=== PATIENT | male | born 1955 | race Caucasian/White ===

== ENCOUNTER 2018-07-01 18:26 | Inpatient (IN) | payer MEDICAID, OTHER ==
--- NOTE | 2018-07-01 19:07 | ED ---
HPI Cardiac - HPI Summary HPI Summary: Patient is a 62 y/o M presenting to ED with complaints of chest pain characterized as a pressure, left arm pain, and left jaw pain. He notes that he was in [place] visiting his who is hospitalized at [facility] with pneumonia and is on ecmo. He was driving to [place], stopped at gas station and got out. He states that as he was walking, Sx progressively began to onset and worsened as he continued to drive. He went to [facility], stopped on side of the street, asked a passerby to call EMS. He reports that Sx have improved but are still present slightly. No sweats, no nausea, no BLE is reported. He was SOB during episode as well. Patient claims he is around 70% blocked on left carotid artery and that he is scheduled for a bypass. PMHx of stroke, HTN, diabetes, HLD, no MD. Patient is on blood thinners. On triage, pain is rated 2/ 10. Home medications and allergies are reviewed. - History of Current Complaint Chief Complaint: EDChestPainROMI Stated Complaint: CHEST PAIN Time Seen by Provider: 07/01/18 19:01 Hx Obtained From: Patient Onset/Duration: Started Hours Ago, Still Present Timing: Constant, Lasting Hours Initial Severity: Severe Current Severity: Mild - 2/10 Pain Intensity: 2 Pain Scale Used: 0-10 Numeric - 2/10 Chest Pain Radiates: Yes Chest Pain Radiates To:: Arm - left, Jaw - left Character: Pressure/Squeezing Aggravating Factor(s): Nothing Alleviating Factor(s): Nothing Associated Signs and Symptoms: Positive: Chest Pain, Shortness of Breath, Other : - left jaw pain, left arm pain. Negative: Swelling, Diaphoresis, Nausea, Calf Pain/Swelling - Allergy/Home Medications Allergies/Adverse Reactions: Allergies Allergy/AdvReac Type Severity Reaction Status Date / Time Penicillins Allergy See Comment Verified 07/01/18 18:45 Home Medications: Home Medications Acarbose 1 tab PO TID WITH MEALS 07/01/18 [History Confirmed 07/01/18] Amitriptyline TAB* [Elavil TAB*] 50 mg PO BEDTIME 07/01/18 [History Confirmed ] Aspirin 81 mg PO DAILY 07/01/18 [History Confirmed 07/01/18] Citalopram TAB* [CeleXA TAB*] 1.5 tab PO DAILY 07/01/18 [History Confirmed 07/01] Clopidogrel TAB* [Plavix TAB*] 75 mg PO DAILY 07/01/18 [History Confirmed ] Cyanocobalamin (Vitamin B-12) [B-12] 2,500 mcg PO DAILY 07/01/18 [History Confirmed 07/01/18] Hydrochlorothiazide TAB* [Hydrodiuril TAB*] 1 tab PO DAILY 07/01/18 [History Confirmed 07/01/18] Lisinopril 1 tab PO DAILY 07/01/18 [History Confirmed 07/01/18] Metoprolol Succinate XL TAB* [Toprol XL TAB*] 50 mg PO BID 07/01/18 [History Confirmed 07/01/18] Multivit-Min/FA/Lycopen/Lutein [Centrum Silver Men Tablet] 1 each PO DAILY 07/01 [History Confirmed 07/01/18] [place] Oil/Howe-3 Fatty Acids [[place] Oil 1,000 mg Softgel] 1 each PO DAILY 02/08 [History Confirmed 07/01/18] Simvastatin 1 tab PO BEDTIME 07/01/18 [History Confirmed 07/01/18] glyBURIDE TAB* [Diabeta TAB*] 2 tab PO BID WITH MEALS 07/01/18 [History Confirmed 07/01/18] metFORMIN* [Glucophage 1000 MG TAB *] 1,000 mg PO QPM 07/01/18 [History Confirmed 07/01/18] metFORMIN* [Glucophage 1000 MG TAB *] 1,500 mg PO QAM 07/01/18 [History Confirmed 07/01/18] traZODone TAB* [Desyrel TAB*] 50 mg PO BEDTIME 07/01/18 [History Confirmed 07/01] PMH/Surg Hx/FS Hx/Imm Hx Endocrine/Hematology History: Reports: Hx Diabetes Cardiovascular History: Reports: Hx Hypercholesterolemia, Hx Hypertension Denies: Hx Myocardial Infarction Sensory History: Denies: Hx Legally Blind, Hx Deafness Opthamlomology History: Denies: Hx Legally Blind EENT History: Denies: Hx Deafness Neurological History: Reports: Hx CVA Infectious Disease History: No Infectious Disease History: Denies: Traveled Outside the [place] in Last 30 Days - Family History Known Family History: Negative: Blood Disorder - Social History Lives: With Family Alcohol Use: None Substance Use Type: Reports: None Review of Systems Negative: Skin Diaphoresis Positive: Chest Pain - with radiation to left jaw and left arm Positive: Shortness Of Breath Negative: Nausea Negative: Edema - no BLE All Other Systems Reviewed And Are Negative: Yes Physical Exam - Summary Physical Exam Summary: VITAL SIGNS: Reviewed. GENERAL: Patient is a well-developed and obese male who is lying comfortable in the stretcher. Patient is not in any acute respiratory distress. HEAD AND FACE: No signs of trauma. No ecchymosis, hematomas or skull depressions. No sinus tenderness. EYES: PERRLA, EOMI x 2, No injected conjunctiva, no nystagmus. EARS: Hearing grossly intact. Ear canals and tympanic membranes are within normal limits. MOUTH: Oropharynx within normal limits. NECK: Supple, trachea is midline, no adenopathy, no JVD, no carotid bruit, no c- spine tenderness, neck with full ROM. CHEST: Symmetric, no tenderness at palpation LUNGS: Clear to auscultation bilaterally. No wheezing or crackles. CVS: Regular rate and rhythm, S1 and S2 present, no murmurs or gallops appreciated. ABDOMEN: Soft, non-tender. No signs of distention. No rebound no guarding, and no masses palpated. Bowel sounds are normal. EXTREMITIES: FROM in all major joints, no edema, no cyanosis or clubbing. NEURO: Alert and oriented x 3. No acute neurological deficits. Speech is normal and follows commands. SKIN: Dry and warm Triage Information Reviewed: Yes Vital Signs On Initial Exam: Initial Vitals Temp Pulse Resp BP Pulse Ox 98.4 F 105 14 165/86 95 07/01/18 18:38 07/01/18 18:38 07/01/18 18:38 07/01/18 18:38 07/01/18 18:38 Vital Signs Reviewed: Yes Diagnostics - Vital Signs Vital Signs Temp Pulse Resp BP Pulse Ox 07/01/18 18:38 98.4 F 105 14 165/86 95 - Laboratory Result Diagrams: 07/02/18 05:59 07/02/18 05:52 Lab Statement: Any lab studies that have been ordered have been reviewed, and results considered in the medical decision making process. - Radiology cxr Radiology Interpretation Completed By: ED Physician Summary of Radiographic Findings: Chest x-ray: sided chest interstitial congestion, no infiltrate, pending official report. - EKG 1901 Cardiac Rate: NL - rate of 105 BPM EKG Rhythm: Sinus Tachycardia Summary of EKG Findings: EKG showed sinus rhythm with rate of 105 BPM, no ST elevations. Re-Evaluation - Re-Evaluation First Eval Re-Evaluation Time: 21:13 Comment: Admission was discussed with patient, he is agreeable. Disposition - Course Assessment/Plan: Patient is a 62 y/o M presenting to ED with complaints of chest pain characterized as a pressure, left arm pain, and left jaw pain. He notes that he was in [place] visiting his who is hospitalized at [facility] with pneumonia and is on ecmo. He was driving to [place], stopped at gas station and got out. He states that as he was walking, Sx progressively began to onset and worsened as he continued to drive. He went to [facility] , stopped on side of the street, asked a passerby to call EMS. He reports that Sx have improved but are still present slightly. No sweats, no nausea, no BLE is reported. He was SOB during episode as well. Patient claims he is around 70% blocked on left carotid artery and that he is scheduled for a bypass. PMHx of stroke, HTN, diabetes, HLD, no MD. Patient is on blood thinners. Blood work without any significant abnormality except for glucose 184, AST was 55, AST is 105, troponin 0.05. EKG shows no ST elevations. Chest x-ray: sided chest interstitial congestion, no infiltrate. The patient was given an aspirin and because of his multiple risk factors I discussed the case with Dr. Hinojosa from the hospitalist services and she agrees to admit the patient to his services for further workup and management. - Differential Dx - Cardiopulmonary Differential Diagnoses - Cardiopulmonary: CAD, CHF, Chest Wall Pain - Diagnoses Provider Diagnoses: Chest pain, Elevated troponin - Physician Notifications Discussed Care Of Patient With: Judi Padilla Time Discussed With Above Provider: 21:11 Instructed by Provider To: Other - Patient's case was discussed with Dr. Padilla at 2110, Dr. Padilla accepts for admission. Discharge - Sign-Out/Discharge Documenting (check all that apply): Patient Departure - admit Patient Received Moderate/Deep Sedation with Procedure: No - NO PROCEDURES DONE - Discharge Plan Condition: Stable Disposition: ADMITTED TO [facility] - Billing Disposition and Condition Condition: STABLE Disposition: Admitted to [facility] - Attestation Statements Document Initiated by Kennedy: Yes Documenting Scribe: DORIAN MYLES Provider For Whom Jennyibe is Documenting (Include Credential): PRERNA MCKEON MD Scribe Attestation: IDORIAN , scribed for PRERNA MCKEON MD on 07/02/18 at 1247. Scribe Documentation Reviewed: Yes Provider Attestation: The documentation as recorded by the scribeDORIAN accurately reflects the service I personally performed and the decisions made by me, PRERNA MCKEON MD Status of Scribe Document: Viewed
[2018-07-01 19:27] LABS: ABS Basophils 0 10^3/ul (0-0.2); ABS Eosinophils 0.1 10^3/ul (0-0.6); ABS Lymphocytes 1.4 10^3/ul (1.0-4.8); ABS Monocytes 0.4 10^3/ul (0-0.8); ABS Neutrophils 4.4 10^3/ul (1.5-7.7); ABS Nucleated RBC 0 10^3/ul; Eosinophil % 1.5 %; Hematocrit 41 % (42-52); Hemoglobin 14.1 g/dl (14.0-18.0); Lymphocyte % 22.1 %; Mean Corpuscular HGB Conc 34 g/dl (31-36); Mean Corpuscular Hemoglobin 31 pg (27-31); Mean Corpuscular Volume 91 fL (80-94); Mean Platelet Volume 8.1 fL (7.4-10.4); Nucleated Red Blood Cells % 0; Platelet Count 134 10^3/ul (150-450); Red Blood Count 4.54 10^6/ul (4.00-5.40); Red Cell Distribution Width 15 % (10.5-15); White Blood Count 6.3 10^3/ul (3.5-10.8)
[2018-07-01 19:40] LABS: Activated Partial Thrombo Time 36.6 seconds (26.0-36.3); INR 0.98 (0.77-1.02)
[2018-07-01 19:44] LABS: Albumin 4.5 g/dL (3.2-5.2); Albumin/Globulin Ratio 1.8 (1-3); Calcium 9.3 mg/dL (8.6-10.3); EGFR African American 78.8 (>60); EGFR Non-African American 65.1 (>60); Globulin 2.5 g/dL (2-4); Potassium 3.8 mmol/L (3.5-5.0); Total Bilirubin 0.4 mg/dL (0.2-1.0)
[2018-07-01 19:49] LABS: CKMB ng/mL 5.3 ng/mL (0.6-6.3)
[2018-07-01 19:50] LABS: Troponin I 0.05 ng/mL (<0.04)
[2018-07-01 20:42] LABS: TSH (Thyroid Stimulating Horm) 1.03 mcIU/mL (0.34-5.60)
[2018-07-01] MEDS ORDERED: Aspirin 81 mg CHEW TAB* 81 MG TAB.CHEW PO ONE (21:22)
[2018-07-01] MEDS ORDERED: Heparin VIAL(*) 5000 UNITS/ML VIAL (FIVE THOUSAND) SUBCUT SCH (22:00)
[2018-07-01] MEDS ORDERED: Metoprolol Succinate XL TAB* 50 MG PO ONE (22:03)
[2018-07-01] MEDS ORDERED: Dextrose 50% Syringe 50 ML* 25 GM/50 ML SYRINGE IV PUSH PRN (22:06)
[2018-07-01] MEDS ORDERED: Heparin DRIP 25,000 UNITS(*) 25,000 UNITS/500 ML BAG IV SCH (23:00)
[2018-07-01] MEDS ORDERED: Heparin VIAL(*) 5000 UNITS/ML VIAL (FIVE THOUSAND) IV PRN (23:10)
--- NOTE | 2018-07-02 00:34 | HP ---
HISTORY AND PHYSICAL: ADDENDUM: I discussed the case with Dr. Cronin, boom cat operator, who was concerned about unstable angina, recommended placing the patient on a heparin drip until at least he had 2 negative cardiac enzymes. As well recommended to check a DDIMER. The patient will started on a drip at this point and will add on DDIMER. He will consult on the patient tomorrow. The patient remains symptoms free at this time. Discussed case with attending physician Dr. Padilla BILLY NASCIMENTO, BLOCK CAPTAIN [id number]/CPS #: [id number] MARISA
--- NOTE | 2018-07-02 00:42 | PN ---
Hospitalist Progress Note Date of Service: 07/02/18 Patient was admitted earlier for possible acute coronary syndrome. He had received aspirin in the EMS, here started on plavix, heparin drip. D-dimer was low. Troponin is trending upwards, and EKG: shows Twave changes at the leads III, avF. Currently chest pain free, jaw pain free, left arm pain free. No shortness of breath Lying in bed comfortably, with CPAP on no tachypnea, no use of accessory muscles No chest wall tenderness, regular rhythm. Discussed the case with on-call supervisor hot dip tinning, Mehrdad Ruiz, who recommends continue current care. Will continue to monitor the patient.
[2018-07-02] MEDS ORDERED: Atorvastatin* 40 MG TAB PO SCH (01:00)
--- NOTE | 2018-07-02 01:31 | HP ---
AMENDED REPORT NOW INCLUDES COSIGNER DESIGNATION ADDENDUM NOW INCLUDED ON THIS REPORT HISTORY AND PHYSICAL: DATE OF ADMISSION: 07/01/18 PROVIDER: Billy Nascimento NP. ATTENDING PHYSICIAN: Dr. Padilla * (report dictated by Billy Nascimento NP). PRIMARY CARE PROVIDER: Dr. Raoul Theodore, [place], [place]. ELEVATED GUARD: Dr. Kike Ruiz, [place], [place]. GOLF PROFESSIONAL: [facility], Dr. Jernigan. CHIEF COMPLAINT: Left jaw and arm pain, chest tightness. HISTORY OF PRESENT ILLNESS: Mr. Adame is a 62-year-old male with a past medical history of obesity, tkk-eoszaxb-bhswbrema type 2 diabetes, history of coronary artery disease, status post drug-eluting stent placement, history of stroke at age 41, hypertension, previous history of long-term tobacco abuse, carotid stenosis, who presented to the emergency department when he was driving through [place] on his way home from [place] when he developed an acute onset of left jaw pain, radiating to his left arm, to the back of his neck with some chest tightness. He reports that he was pumping gas when initially these symptoms came on. He got back in his car, he reports he felt weird and decided to keep driving towards home. As he was driving, the pain became more intense and he pulled over in [place] and asked somebody for help who called an ambulance and he was brought to [facility] for further evaluation. On arrival of EMS, he was given 4 baby aspirin and a nitro, which he reports relieved his symptoms completely. He arrived at the emergency department symptom free. His initial troponin was 0.05. EKG showing sinus tachycardia with a rate 105, questionable ST depression in lead V1, V2. The patient reports that these symptoms were similiar to what he experienced when he had his stent placed 7 years ago. He states at that time he went to the ER and was watched for 2 days, sent home and came back the next day for a cath and had the stent plcaed, this was at [facility]. Since that time he reports he has not had chest pain, and had a normal stress test 1-1/2 years ago. The patient was driving from [facility] where his is currently mechanically ventilated, on ECMO for the past 10 days. He does report that she is doing much better and states that he does not feel completely stressed by this, but has been traveling back and forth, staying in a hotel. His has a long history of health problem . Currently in the emergency department, the patient continues to state that he is symptom free. In clarification of the emergency department note stating the patient has carotid stenosis of 70% in the left and is due for scheduled bypass , this is inaccurate per patient, he has no plan for bypass and they are just monitoring this every 6 months at this time. PAST MEDICAL HISTORY: 1. History of CVA at 41 years old. 2. Hypertension. 3. Hrw-hntrvzm-lsqsrilby type 2 diabetes. 4. Hyperlipidemia. 5. 70% carotid artery stenosis on the left. 6. Sleep apnea, on CPAP. 7. Coronary artery disease, status post stent placement 7 years ago with a drug - eluting stent at [facility]. Last stress test 1-1/2 years ago, which he reports was normal. 8. Depression. CURRENT MEDICATIONS: 1. Amitriptyline 50 mg p.o. at bedtime. 2. Aspirin 81 mg p.o. daily. 3. Celexa 30 mg p.o. daily. 4. Plavix 75 mg p.o. daily. 5. Metoprolol 50 mg p.o. b.i.d. 6. Acarbose 25 mg 1 tab p.o. t.i.d. with meals. 7. Lisinopril 40 mg p.o. daily. 8. Trazodone 50 mg p.o. at bedtime. 9. Hydrochlorothiazide 25 mg p.o. daily. 10. Metformin 1500 mg p.o. q.a.m. and 1000 mg p.o. q.p.m. 11. Glyburide 5 mg, take 2 tabs p.o. b.i.d. 12. Vitamin B12 2500 mcg p.o. daily. 13. [place] oil/[place] 3 one cap p.o. daily. ALLERGIES: PENICILLIN. FAMILY HISTORY: Coronary artery disease and diabetes. SOCIAL HISTORY: The patient smoked tobacco for 25 years, smoking 1 pack a day, quitting approximately 6 years ago. Denies recreational drug use. Rare alcohol use. The patient is disabled. He is and has 2 kids. One of his children committed suicide. His other son lives in [place], [place]. REVIEW OF SYSTEMS: A 14-point review of systems was performed. All the pertinent positives and negatives are mentioned in the history of present illness. PHYSICAL EXAMINATION GENERAL APPEARANCE: A very pleasant 62-year-old male, alert and oriented x3, in no acute distress, sitting in the emergency department stretcher. VITAL SIGNS: Temperature 98.4, heart rate 93, respirations 17, O2 sat 95% on room air, blood pressure 151/81. HEENT: Head is normocephalic, atraumatic. Pupils equal and reactive to light. Oropharynx is clear. Moist mucous membranes. NECK: Supple. LUNGS: Clear to auscultation bilaterally. Good aeration throughout. CARDIAC: S1, S2. Regular rate and rhythm. No murmur, rub, or gallop appreciated. No JVD noted. ABDOMEN: Obese, round, soft, nontender. Normal bowel sounds throughout. EXTREMITIES: No clubbing, cyanosis or edema noted. Moves all extremities equally. Strength is 5/5 throughout. NEURO: Cranial nerves II through XII are grossly intact. Moves all extremities equally. Sensation to lower extremities intact to light touch. SKIN: No rashes, lesions, or open wounds noted. PSYCH: Alert and oriented x3. Affect normal. DIAGNOSTIC STUDIES/LAB DATA: Sodium 141, potassium 3.8, chloride 107, carbon dioxide 29, anion gap 5, BUN 16, creatinine 1.14, glucose 184, lactic acid 1.4, calcium 9.3, magnesium 2.0, total bilirubin 0.40, AST 55, ALT 107, alkaline phosphatase 44, total creatinine kinase 103. CK-MB 5.3. Troponin 0.05. BNP 27 , total protein 7.0, TSH 1.03, INR 0.98. WBC 6.3, RBC 4.54, Hgb 14.1, HCT 41, MCV 91, platelet count 134. ASSESSMENT AND PLAN: Mr. Adame is a 62-year-old male with a past medical history of cerebrovascular accident, carotid artery stenosis, non-insulin- dependent type 2 diabetic, hyperlipidemia, coronary artery disease s/p stent, previous long-term tobacco abuse, who presented to the emergency department after acute onset of left arm, left jaw pain with accompanied chest tightness. 1. Chest pain, rule out myocardial infarction. The patient's DEEPA score is 2. He has no EKG changes. Initial troponin was 0.05. Questionable ST depression in V1, V2. Plan to admit the patient to telemetry, trend his troponins, repeat EKG with any new onset of chest pain and repeat EKG in the morning. We will try to obtain records from [facility]. I think the patient should be seen by Cardiology tomorrow to determine if the patient should undergo a stress test on Tuesday. Nitro p.r.n. Continue aspirin, beta-ang. We will try and obtain records from Dr. Kike Ruiz; and [facility] 2. Type 2 diabetes. Hold the patient's oral home medications. Fingerstick blood glucose a.c. and h.s. with Lispro sliding scale. Obtain hemoglobin A1C. 3. Hypertension. Continue antihypertensive medications. 4. Depression. Continue Celexa. 5. Chronic neck pain. Supportive treatment. 6. Sleep apnea. Continue CPAP. 7. DVT prophylaxis: Heparin subcu. 8. Code status: Full code. The patient lists his son Andrew as his second healthcare proxy since his is currently ill in the hospital. His number is [phone]. TIME SPENT: Approximately 60 minutes was spent on this admission. BILLY NASCIMENTO NP ADDENDUM: I discussed the case with Dr. Cronin, tomography technologist, who was concerned about unstable angina, recommended placing the patient on a heparin drip until at least he had 2 negative cardiac enzymes. As well recommended to check a DDIMER. The patient will started on a drip at this point and will add on DDIMER. He will consult on the patient tomorrow. The patient remains symptoms free at this time. Discussed case with attending physician Dr. Padilla BILLY NASCIMENTO NP [id number]/CPS #: [id number]/CPS #: [id number] MARISA
[2018-07-02 06:28] LABS: ABS Basophils 0.1 10^3/ul (0-0.2); ABS Eosinophils 0.1 10^3/ul (0-0.6); ABS Monocytes 0.5 10^3/ul (0-0.8); ABS Neutrophils 3.5 10^3/ul (1.5-7.7); ABS Nucleated RBC 0 10^3/ul; Eosinophil % 2.4 %; Hematocrit 39 % (42-52); Hemoglobin 13.3 g/dl (14.0-18.0); Lymphocyte % 32.1 %; Mean Corpuscular HGB Conc 34 g/dl (31-36); Mean Corpuscular Hemoglobin 31 pg (27-31); Mean Corpuscular Volume 91 fL (80-94); Mean Platelet Volume 8.2 fL (7.4-10.4); Nucleated Red Blood Cells % 0.1; Platelet Count 113 10^3/ul (150-450); Red Blood Count 4.31 10^6/ul (4.00-5.40); Red Cell Distribution Width 15 % (10.5-15); White Blood Count 6.2 10^3/ul (3.5-10.8)
[2018-07-02 06:37] LABS: BUN/Creatinine Ratio 16.1 (8-20); EGFR African American 107.6 (>60); EGFR Non-African American 88.9 (>60); HDL Cholesterol 29.4 mg/dL; Potassium 3.6 mmol/L (3.5-5.0)
[2018-07-02 06:44] LABS: Troponin I 3.91 ng/mL (<0.04)
[2018-07-02] MEDS: Insulin LISPRO* 1 UNITS UNIT SUBCUT SCH ×4 (07:27→20:48)
[2018-07-02] MEDS ORDERED: Clopidogrel TAB* 300 MG PO ONE (07:30)
[2018-07-02] MEDS: Lisinopril TAB* 10 MG PO SCH (08:29)
[2018-07-02] MEDS: Hydrochlorothiazide TAB* 25 MG PO SCH (08:30)
[2018-07-02] MEDS: Aspirin 81 mg CHEW TAB* 81 MG TAB.CHEW PO SCH (08:30)
[2018-07-02] MEDS: Citalopram TAB* 20 MG PO SCH (08:30)
[2018-07-02] MEDS ORDERED: Metoprolol Succinate XL TAB* 50 MG PO SCH (09:00)
--- NOTE | 2018-07-02 13:41 | CONS ---
CARDIOLOGY CONSULTATION: DATE OF CONSULT: 07/02/18 REFERRING PHYSICIAN: Vanda Hughes NP, of the hospitalist service and Dr. Vahid Moyer. REASON FOR CARDIOLOGY CONSULTATION: Non-Q-wave SC. HISTORY OF PRESENT ILLNESS: Mr. Adame is a pleasant 63-year-old gentleman with a history of coronary artery disease with KAYODE 7 years ago at [facility]. Yesterday he was driving and developed severe chest pain approximately 4 p.m. (currently, it is 12:30 p.m. the following day). IA bystander called 911 as he pulled over from driving and he received 1 nitroglycerin sublingual as well as he chewed 4 aspirin with complete relief of his chest pain. His chest pain had been quite severe across his chest radiating to both arms and going to his neck. Again, after 1 sublingual nitroglycerin, his chest pain completely resolved and he has had no further chest pain. The patient was admitted to [facility] subsequently and had a peak troponin of 3.91. Currently, he is pain-free. PAST MEDICAL HISTORY: Includes coronary artery disease. The patient had a drug - eluting stent at [facility] 7 years ago. He follows with a wet machine cutter, Dr. Cobos, in [place], [place], which is where he is from. He has a history of CVA at the age of 41, hypertension, [id number] type 2 diabetes, hyperlipidemia, 70% left internal carotid artery stenosis and 50% right internal carotid artery stenosis per the patient, STELLA on CPAP, depression. OUTPATIENT MEDICATIONS: 1. Elavil 50 mg p.o. q.h.s. 2. Aspirin 81 mg once a day. 3. Celexa 30 mg once a day. 4. Plavix 75 mg once a day. 5. Lopressor 50 mg p.o. b.i.d. 6. Lisinopril 40 mg once a day. 7. Trazodone 50 mg p.o. q.h.s. 8. Hydrochlorothiazide 25 mg once a day. 9. Metformin 1.5 g in the morning, 1 g in the evening. 10. Glyburide 5 mg 2 tablets b.i.d. 11. Vitamin B12. 12. Montague oil. ALLERGIES TO MEDICATIONS: PENICILLIN, which causes the skin on his hands to become itchy. He denies shrimp, seafood, or dye products allergy. FAMILY HISTORY: Significant for colon cancer in his father and sister, who both from that. His mother had a history of enlarged heart, as did his maternal grandfather. There is a family history of diabetes in his son. No family history of stroke. SOCIAL HISTORY: The patient has been once and is currently for 13 years. His is currently critically in on ECMO at [facility] for severe pneumonia. The patient is a high school graduate. He used to work with developmentally disabled individuals, but has been on disability now himself due to spinal stenosis. He does try to do some walking, but is limited. REVIEW OF SYSTEMS: The patient has had prior stroke at the age of 41 and has aphasia from that. He denies a personal history of cancer, although he has had colonic polyps removed. He denies vomiting blood, coughing up blood, bright red blood per rectum, bleeding stomach ulcers. He has had prior hematuria and was told that he had renal calculi. He denies cholelithiasis. He denies asthma , emphysema, pneumonia, tuberculosis. He has a history of sleep apnea, for which he uses CPAP. He does not use home oxygen. He has diabetes. He has hypertension. He has not had a prior SC. He denies prior congestive heart failure. He denies prior bypass. He had a drug-eluting stent placed 7 years ago at the "bottom of his heart" at [facility]. He occasionally has palpitations. He has anxiety, depression. He denies lupus, psoriasis, seizures , Parkinson disease, myasthenia gravis, thyroid disorders, liver disorders currently, although in the past he has had nonalcoholic fatty liver. He states he was told that his kidneys are 70% functional. He denies claudication symptoms, pulmonary emboli, deep venous thrombosis, peripheral arterial disease , peripheral edema. He has rare heartburn. All other review of systems are negative x14, except as per this EHR. PHYSICAL EXAM: Height 5 feet 9 inches, weight 254 pounds, temperature 98 degrees, pulse 84, respiratory rate 16, blood pressure ranges from 146/70 to 160 /86. On general exam, he is a pleasant, overweight gentleman, in no acute distress, lying flat. HEENT shows the cranium is normocephalic and atraumatic. He has moist mucosal membranes. Neck veins are not distended. There are bilateral soft carotid bruits. Visible skin warm and perfused. Affect appropriate. He appears oriented. No significant kyphoscoliosis on back exam. Lungs are clear to auscultation. No wheezes, no rales. Cardiac Exam: S1, S2. Regular rate. No significant murmurs, rubs, or gallops. PMI is nondisplaced. Abdomen: Soft and nondistended, appears benign. Extremities without significant edema. Pulses appear grossly intact. DIAGNOSTIC STUDIES/LAB DATA: A 12-lead EKG reviewed from 07/01/18 at 1855 demonstrates normal sinus rhythm and no acute disease. EKG completed 07/02/18 at 5:49 a.m. demonstrates normal sinus rhythm, no acute disease, not significantly changed from prior. Sodium 142, potassium 3.6, chloride 107, bicarbonate 27, BUN 14, creatinine 0.87. Troponin on admission was 0.05, followed by 1.47, followed by 2.68, followed by 3.91, followed by 2.64. LDL 52 with total cholesterol 122, triglycerides 202, HDL 29. D-dimer less than 200. INR 0.98. White blood cell count 6.2, hematocrit 39, platelet count 113. IMPRESSION: Mr. Adame is a pleasant 63-year-old gentleman with known history of coronary artery disease, status post drug-eluting stent 7 years ago (? RCA) now with non-Q- wave myocardial infarction. He is currently pain-free for almost 24 hours with no signs or symptoms of ongoing ischemia. RECOMMENDATIONS: 1. Continue aspirin, statin, Plavix and he has been reloaded, beta-ang, LLOYD inhibitor, heparin drip. Watch platelet count. 2. Plan cardiac catheterization in the morning or sooner if he becomes unstable. I have discussed the case with the cardiac interventional service, Dr. Fraga, as well who is also now aware of the patient. I have also discussed the patient' s case with Ms. Hughes and Dr. Garner. The above was discussed in detail with the patient and his brother (with the patient's verbal consent) and they are in agreement with these recommendations. Dear Dr. Moyer and Ms. Hughes, many thanks for asking me to participate in the cardiovascular consultative care of Mr. Adame. Please do not hesitate to contact me if you have any questions or concerns regarding the patient's cardiovascular consultative care. [id number]/[facility] #: [id number] MARISA
[2018-07-02] MEDS ORDERED: Acetaminophen TAB* 325 MG PO PRN (15:46)
--- NOTE | 2018-07-02 15:48 | PN ---
Subjective Date of Service: 07/02/18 Interval History: Pt seen and examined. Meds and labs reviewed. CC: N/A ROS: Denied BURDEN/dizziness, F/C, N/V, CP, SOB, increased cough, sputum production , abd pain, diarrhea, constipation, dysuria, myalgias, arthralgias, throat pain , and new skin lesions. The rest of the 14 point ROS are unremarkable. PHYSICAL EXAM: GEN APPEARANCE: Awake, not in acute distress, obese HEENT: NC/AT, PERRLA, moist oral mucosa, (-) throat erythema NECK: Soft, supple, (-) cervical LAD, (-)JVD HEART: S1S2 WNL, RRR, No MRG CHEST: CTA, BL, GAE, No W/R/R ABD: Soft, ND/NT, NABS 4x Q EXT: No C/C/E SKIN: Warm to touch PSYCH: No active psychosis, hallucinations, depression, SI/HI Objective Active Medications: Amitriptyline HCl (Elavil Tab*) 50 mg PO BEDTIME [facility] Aspirin (Aspirin 81 Mg Chew Tab*) 81 mg PO DAILY [facility] Last Admin: 07/02/18 08:30 Dose: 81 mg Atorvastatin Calcium (Lipitor*) 80 mg PO BEDTIME [facility] Citalopram Hydrobromide (Celexa Tab*) 30 mg PO DAILY [facility] Last Admin: 07/02/18 08:30 Dose: 30 mg Clopidogrel Bisulfate (Plavix Tab*) 75 mg PO DAILY [facility] Dextrose (D50w Syringe 50 Ml*) 12.5 gm IV PUSH .FOR FS < 60 - SS PRN PRN Reason: FS < 60 Heparin Sodium (Porcine) (Heparin Vial(*)) 0 units IV .BOLUS PRN PRN Reason: HEPARIN DRIP PROTOCOL Last Admin: 07/02/18 00:06 Dose: 4,000 units Hydrochlorothiazide (Hydrodiuril Tab*) 25 mg PO DAILY [facility] Last Admin: 07/02/18 08:30 Dose: 25 mg Heparin Sodium/Dextrose (Heparin Drip 25,000 Units(*)) 25,000 units in 500 mls @ 0 mls/hr IV PER RATE [facility]; Protocol Stop: 07/03/18 06:00 Last Admin: 07/02/18 00:06 Dose: 20 mls/hr Sodium Chloride (Ns 0.9% 1000 Ml) 1,000 mls @ 100 mls/hr IV .per rate [facility] Insulin Human Lispro (Humalog*) 0 units SUBCUT ACHS [facility]; Protocol Last Admin: 07/02/18 11:12 Dose: Not Given Lisinopril (Prinivil Tab*) 40 mg PO DAILY [facility] Last Admin: 07/02/18 08:29 Dose: 40 mg Metoprolol Succinate (Toprol Xl Tab*) 75 mg PO BID [facility] Trazodone HCl (Desyrel Tab*) 50 mg PO BEDTIME [facility] Vital Signs - 8 hr 07/02/18 07/02/18 11:18 11:37 Temperature 98.2 F Pulse Rate 79 Respiratory 16 Rate Blood Pressure 160/86 (mmHg) O2 Sat by Pulse 98 Oximetry Oxygen Devices in Use Now: None Result Diagrams: 07/02/18 05:59 07/02/18 05:52 Assess/Plan/Problems-Billing Assessment: - Patient Problems (1) NSTEMI (non-ST elevated myocardial infarction) Current Visit: Yes Status: Acute Code(s): I21.4 - NON-ST ELEVATION (NSTEMI) MYOCARDIAL INFARCTION SNOMED Code(s): 65836747 Comment: -Continue DAPT, Heparin gtt, statins, Metoprolol, and Lisinopril -Metoprolol increased to 75 mg BID earlier due to slightly uncontrolled HTN -For [facility] in AM; NPO at midnight ordered by Dr. Fraga -Will defer w/Cards for any further inputD/W Dr. Cronin (2) HTN (hypertension) Current Visit: Yes Status: Acute Code(s): I10 - ESSENTIAL (PRIMARY) HYPERTENSION SNOMED Code(s): 10872153 Comment: -Slightly uncontrolled -Increased dose of Metoprolol as discussed above -Continue other anti-HTNs (3) Diabetes 1.5, managed as type 2 Current Visit: Yes Status: Acute Code(s): E13.9 - OTHER SPECIFIED DIABETES MELLITUS WITHOUT COMPLICATIONS SNOMED Code(s): 704854399 Comment: -Well controlled -Continue ISS and FS checks -HBa1c (07/01/18) = 6.4 -Will add Consistent carb diet to current heart healthy diet w/o caffeine -Continue watchful waiting (4) Depression Current Visit: Yes Status: Acute Code(s): F32.9 - MAJOR DEPRESSIVE DISORDER , SINGLE EPISODE, UNSPECIFIED SNOMED Code(s): 84293187 Comment: -Well-controlled -Continue Amitriptyline, Citalopram, and Trazodone (5) DVT prophylaxis Current Visit: Yes Status: Acute Code(s): ACQ6380 - SNOMED Code(s): 718406461 Comment: -Pt on Heparin gtt Status and Disposition: -For LHC in AM -For possible D/C 2-3 days post cath
[2018-07-02] MEDS ORDERED: Atorvastatin* 10 MG TAB PO SCH (21:00)
[2018-07-02] MEDS: Amitriptyline TAB* 50 MG PO SCH (21:01)
[2018-07-02] MEDS: Atorvastatin* 80 MG TAB PO SCH (21:01)
[2018-07-02] MEDS: Metoprolol Succinate XL TAB* 50 MG PO SCH (21:03)
[2018-07-02] MEDS: traZODone TAB* 50 MG TAB PO SCH (21:05)
[2018-07-03 06:16] LABS: ABS Basophils 0.1 10^3/ul (0-0.2); ABS Eosinophils 0.2 10^3/ul (0-0.6); ABS Monocytes 0.5 10^3/ul (0-0.8); ABS Neutrophils 3.7 10^3/ul (1.5-7.7); ABS Nucleated RBC 0 10^3/ul; Eosinophil % 2.4 %; Hematocrit 41 % (42-52); Hemoglobin 13.9 g/dl (14.0-18.0); Lymphocyte % 30.6 %; Mean Corpuscular HGB Conc 34 g/dl (31-36); Mean Corpuscular Hemoglobin 31 pg (27-31); Mean Corpuscular Volume 91 fL (80-94); Mean Platelet Volume 7.9 fL (7.4-10.4); Nucleated Red Blood Cells % 0.1; Platelet Count 111 10^3/ul (150-450); Red Blood Count 4.52 10^6/ul (4.00-5.40); Red Cell Distribution Width 16 % (10.5-15); White Blood Count 6.4 10^3/ul (3.5-10.8)
[2018-07-03 06:35] LABS: ALT 94 U/L (7-52); AST 63 U/L (13-39); Albumin 3.9 g/dL (3.2-5.2); Albumin/Globulin Ratio 1.6 (1-3); Alkaline Phosphatase 41 U/L (34-104); Anion Gap 7 mmol/L (2-11); BUN/Creatinine Ratio 17.9 (8-20); Blood Urea Nitrogen 15 mg/dL (6-24); CO2 Carbon Dioxide 28 mmol/L (22-32); Calcium 9.5 mg/dL (8.6-10.3); Chloride 104 mmol/L (101-111); EGFR Non-African American 92.6 (>60); Globulin 2.5 g/dL (2-4); Glucose 116 mg/dL (70-100); Phosphorus 4.6 mg/dL (2.5-5.0); Potassium 3.8 mmol/L (3.5-5.0); Sodium 139 mmol/L (135-145); Total Protein 6.4 g/dL (6.4-8.9)
[2018-07-03] MEDS ORDERED: NS 0.9% 1000 ML** 1,000 ML IV SCH ×2 (07:00→12:55)
[2018-07-03] MEDS: Insulin LISPRO* 1 UNITS UNIT SUBCUT SCH ×4 (07:56→21:46)
[2018-07-03] MEDS: Hydrochlorothiazide TAB* 25 MG PO SCH (08:06)
--- NOTE | 2018-07-03 08:39 | PN ---
Hospitalist Progress Note Date of Service: 07/03/18 Dr. Madrid called me earlier and mentioned that Heparin gtt was stopped this AM due to mild thrombocytopenia. He asked me if this will preclude DAPT. On review of his data and medical history, it is unclear why he has mild thrombocytopenia. His thrombocytopenia had some gradual decrease in admission likely due to some dilutional effect of fluids he had received since admission, supported by the concomitant decrease of the rest of his differential count. I advised that in balancing risks and benefits to treat his ACS/NSTEMI as priority. I also discussed the case w/Dr. Griffin who agrees with above impression and D/C of Heparin. He also advised to obtain SPEP and B12 levels to evaluate for other causes of assymptomatic mild idiopathic thrombocytopenia. Possibly mild ITP?
[2018-07-03] MEDS: Lisinopril TAB* 10 MG PO SCH (08:45)
[2018-07-03] MEDS: Clopidogrel TAB* 75 MG PO SCH (08:45)
[2018-07-03] MEDS: Aspirin 81 mg CHEW TAB* 81 MG TAB.CHEW PO SCH (08:45)
[2018-07-03] MEDS: Citalopram TAB* 20 MG PO SCH (08:45)
[2018-07-03] MEDS: Metoprolol Succinate XL TAB* 50 MG PO SCH ×2 (08:47→21:41)
[2018-07-03] MEDS ORDERED: fentaNYL* 50 MCG/ML 2 ML VIAL (100 MCG VIAL) ONE (11:22)
[2018-07-03] MEDS ORDERED: Iohexol 350 (CONTRAST) 200 ML MDV IV ONE ×3 (11:22→12:16)
[2018-07-03] MEDS ORDERED: Midazolam* 1 MG/ML 10 ML VIAL (10 MG) ONE (11:22)
[2018-07-03] MEDS ORDERED: Heparin 2 UNITS/ML IVPREMIX* 2,000 ML IV ONE (11:22)
[2018-07-03] MEDS ORDERED: Lidocaine 1% INJ* 10 MG/ML 30 ML SDV ONE (11:22)
[2018-07-03] MEDS ORDERED: Bivalirudin(*) 250 MG VIAL ONE (11:51)
[2018-07-03] MEDS ORDERED: nitroGLYCERIN DRIP* 25,000 MCG/250 ML BTL ONE ×2 (12:10→12:15)
[2018-07-03] MEDS ORDERED: Nitroglycerin TAB 0.4 MG* 0.4 MG TAB SL PRN (12:49)
[2018-07-03 14:42] LABS: ABS Basophils 0 10^3/ul (0-0.2); ABS Eosinophils 0.1 10^3/ul (0-0.6); ABS Lymphocytes 1.5 10^3/ul (1.0-4.8); ABS Monocytes 0.5 10^3/ul (0-0.8); ABS Neutrophils 4.7 10^3/ul (1.5-7.7); ABS Nucleated RBC 0 10^3/ul; Eosinophil % 1.8 %; Hematocrit 40 % (42-52); Hemoglobin 13.7 g/dl (14.0-18.0); Lymphocyte % 21.4 %; Mean Corpuscular HGB Conc 34 g/dl (31-36); Mean Corpuscular Hemoglobin 31 pg (27-31); Mean Corpuscular Volume 90 fL (80-94); Mean Platelet Volume 8.3 fL (7.4-10.4); Nucleated Red Blood Cells % 0; Platelet Count 125 10^3/ul (150-450); Red Blood Count 4.46 10^6/ul (4.00-5.40); Red Cell Distribution Width 15 % (10.5-15); White Blood Count 6.8 10^3/ul (3.5-10.8)
[2018-07-03] MEDS ORDERED: Metoprolol Succinate XL TAB* 25 MG PO ONE (16:56)
--- NOTE | 2018-07-03 17:15 | PN ---
Subjective Date of Service: 07/03/18 Interval History: Pt seen and examined earlier this AM and underwent LHC subsequently, POD #0. Meds and labs reviewed. No O/N issues. CC: N/A ROS: Denied BURDEN/dizziness, F/C, N/V, CP, SOB, increased cough, sputum production , abd pain, diarrhea, constipation, dysuria, myalgias, arthralgias, throat pain , and new skin lesions. The rest of the 14 point ROS are unremarkable. PHYSICAL EXAM: GEN APPEARANCE: Awake, not in acute distress, obese HEENT: NC/AT, PERRLA, moist oral mucosa, (-) throat erythema NECK: Soft, supple, (-) cervical LAD, (-)JVD HEART: S1S2 WNL, RRR, No MRG CHEST: CTA, BL, GAE, No W/R/R ABD: Soft, ND/NT, NABS 4x Q EXT: No C/C/E SKIN: Warm to touch PSYCH: No active psychosis, hallucinations, depression, SI/HI Objective Active Medications: Acetaminophen (Tylenol Tab*) 650 mg PO Q6H PRN PRN Reason: FEVER/PAIN Amitriptyline HCl (Elavil Tab*) 50 mg PO BEDTIME [facility] Last Admin: 07/02/18 21:01 Dose: 50 mg Aspirin (Aspirin 81 Mg Chew Tab*) 81 mg PO DAILY [facility] Last Admin: 07/03/18 08:45 Dose: 81 mg Atorvastatin Calcium (Lipitor*) 80 mg PO BEDTIME [facility] Last Admin: 07/02/18 21:01 Dose: 80 mg Citalopram Hydrobromide (Celexa Tab*) 30 mg PO DAILY [facility] Last Admin: 07/03/18 08:45 Dose: 30 mg Clopidogrel Bisulfate (Plavix Tab*) 75 mg PO DAILY [facility] Last Admin: 07/03/18 08:45 Dose: 75 mg Dextrose (D50w Syringe 50 Ml*) 12.5 gm IV PUSH .FOR FS < 60 - SS PRN PRN Reason: FS < 60 Heparin Sodium (Porcine) (Heparin Vial(*)) 0 units IV .BOLUS PRN PRN Reason: HEPARIN DRIP PROTOCOL Last Admin: 07/02/18 00:06 Dose: 4,000 units Hydrochlorothiazide (Hydrodiuril Tab*) 25 mg PO DAILY [facility] Last Admin: 07/03/18 08:06 Dose: Not Given Sodium Chloride (Ns 0.9% 1000 Ml) 1,000 mls @ 100 mls/hr IV .per rate [facility] Stop: 07/03/18 20:54 Insulin Human Lispro (Humalog*) 0 units SUBCUT ACHS [facility]; Protocol Last Admin: 07/03/18 11:13 Dose: Not Given Lisinopril (Prinivil Tab*) 40 mg PO DAILY [facility] Last Admin: 07/03/18 08:45 Dose: 40 mg Metoprolol Succinate (Toprol Xl Tab*) 100 mg PO BID [facility] Nitroglycerin (Nitroglycerin Tab 0.4 Mg*) 0.4 mg SL Q5M PRN PRN Reason: ANGINA Trazodone HCl (Desyrel Tab*) 50 mg PO BEDTIME [facility] Last Admin: 07/02/18 21:05 Dose: 50 mg Vital Signs - 8 hr 07/03/18 07/03/18 07/03/18 12:59 13:00 13:05 Temperature Pulse Rate Respiratory 21 Rate Blood Pressure 145/88 138/86 (mmHg) O2 Sat by Pulse Oximetry 07/03/18 07/03/18 07/03/18 13:15 13:31 13:32 Temperature 98.7 F Pulse Rate 85 86 86 Respiratory 12 13 17 Rate Blood Pressure 125/90 141/85 138/86 (mmHg) O2 Sat by Pulse 97 95 95 Oximetry 07/03/18 07/03/18 07/03/18 13:45 14:00 14:12 Temperature Pulse Rate 86 87 83 Respiratory 14 19 13 Rate Blood Pressure 126/82 120/69 132/81 (mmHg) O2 Sat by Pulse 95 95 96 Oximetry 07/03/18 07/03/18 07/03/18 14:15 14:30 14:45 Temperature Pulse Rate 86 80 73 Respiratory 17 18 19 Rate Blood Pressure 130/78 139/81 139/81 (mmHg) O2 Sat by Pulse 95 96 95 Oximetry 07/03/18 07/03/18 07/03/18 15:00 15:15 15:30 Temperature Pulse Rate 80 88 81 Respiratory 21 17 11 Rate Blood Pressure 133/85 143/80 130/75 (mmHg) O2 Sat by Pulse 96 97 96 Oximetry 07/03/18 07/03/18 07/03/18 15:45 16:00 16:08 Temperature 97.3 F Pulse Rate 90 72 Respiratory 22 16 Rate Blood Pressure 128/83 137/80 (mmHg) O2 Sat by Pulse 95 95 Oximetry Oxygen Devices in Use Now: None Result Diagrams: 07/03/18 14:08 07/03/18 05:55 Assess/Plan/Problems-Billing Assessment: - Patient Problems (1) NSTEMI (non-ST elevated myocardial infarction) Current Visit: Yes Status: Acute Code(s): I21.4 - NON-ST ELEVATION (NSTEMI) MYOCARDIAL INFARCTION SNOMED Code(s): 72638064 Comment: -Continue DAPT, statins, Metoprolol, and Lisinopril -LHC reveals 99% or RCA just prior to Postereior descending art.; KAYODE placed -Will defer w/Cards for any further inputD/W Dr. Madrid (2) HTN (hypertension) Current Visit: Yes Status: Acute Code(s): I10 - ESSENTIAL (PRIMARY) HYPERTENSION SNOMED Code(s): 68849043 Comment: -Metoprolol increased to 100 mg BID -Increased dose of Metoprolol as discussed above -Continue other anti-HTNs (3) Diabetes 1.5, managed as type 2 Current Visit: Yes Status: Acute Code(s): E13.9 - OTHER SPECIFIED DIABETES MELLITUS WITHOUT COMPLICATIONS SNOMED Code(s): 846471569 Comment: -Well controlled -Continue ISS and FS checks -HBa1c (07/01/18) = 6.4 -Will add Consistent carb diet to current heart healthy diet w/o caffeine -Continue watchful waiting (4) Depression Current Visit: Yes Status: Acute Code(s): F32.9 - MAJOR DEPRESSIVE DISORDER , SINGLE EPISODE, UNSPECIFIED SNOMED Code(s): 49022719 Comment: -Well-controlled -Continue Amitriptyline, Citalopram, and Trazodone (5) DVT prophylaxis Current Visit: Yes Status: Acute Code(s): GTW6126 - SNOMED Code(s): 153036121 Comment: -Continue SCDs Status and Disposition: -For D/C in AM per Dr. Madrid if no O/N issues -Will defer
--- NOTE | 2018-07-03 17:31 | CATH ---
CC: Dr. Kike Ruiz, System Support Technician in [place], [place], ; Dr. Raoul Bello in [place], [place] CARDIAC CATHETERIZATION REPORT: DATE OF PROCEDURE: 07/03/18. INDICATION FOR THE PROCEDURE: The patient presents with a non-STEMI with a history of prior stent to the circumflex artery assessed for progressive coronary artery disease. The patient with a troponin peak to 3.91. PROCEDURE: Coronary arteriography, left heart catheterization, left ventriculography, balloon angioplasty and placement of a 2.75 x 20 mm long Synergy drug-eluting stent post dilated to 2.9 mm in the distal right coronary artery spanning across the PDA. CONSENT: The patient was interviewed and examined on the floor of the hospital where the risks and benefits were explained. He understood them and wished to proceed. APPROACH UTILIZED: The radial artery was assessed under ultrasound on the floor of the hospital and was found to be acceptable for an approach; however, because of a decreasing platelet count and wanting to avoid using heparin therapy, the decision was made to go from the femoral artery using Angiomax. As such, the femoral artery approach was attempted. Initially, the right femoral artery was attempted as an approach but the wire could not be advanced and as such that approach was aborted, the left femoral artery was subsequently utilized for the approach. EQUIPMENT UTILIZED: 1. The left femoral artery sheath - 5-Estonian Ruth 11 cm sheath. 2. Diagnostic coronary catheters were FL4 and FR4 5-Estonian diagnostic catheters. 3. Interventional sheath utilized was a - Lumatic Prelude 6.5-Estonian sheath. 4. The diagnostic wires utilized for diagnostic study and guide catheter movement included both a regular length Wholey wire and an exchanged length J- tipped wire. 5. The guiding catheter was a 6-Estonian ART 4 curve guide catheter. 6. The left heart catheterization catheter was a 5-Estonian angled pigtail catheter. 7. The interventional wire was initially a 190 length All Star wire followed by 190 length Whisper wire to traverse the distal right coronary artery lesion. 8. Initial balloon angioplasty catheter - a 2.0 x 12 mm long Emerge balloon. 9. The stent placed was a 2.75 x 20 mm Synergy drug-eluting stent. 10. The post stent deployment balloon inflation catheter - was a 2.75 x 12 mm long NC Emerge balloon. The closure device for the left femoral approach was a 6/7- Estonian Mynx closure device. PRECARDIAC CATHETERIZATION LABORATORY RESULTS: Hemoglobin and hematocrit of 13.9 and 41 with a platelet count of 111,000. The BUN and creatinine were 15 and 0.8. Sodium 139, potassium 3.8, chloride 104, bicarb 28. DESCRIPTION OF PROCEDURE: The patient was brought to the cardiovascular laboratory where formal time-out was performed. He was prepped and draped in a sterile fashion. After an unsuccessful aproach from the right side, the left femoral area was then anesthetized with 1% lidocaine and left femoral artery was cannulated and a 5-Estonian sheath was placed. Coronary arteriography was performed as well as central aortic pressure recorded using the angled pigtail catheter advanced the ascending aorta. The catheter was then passed across the aortic valve into the left ventricle where left ventricular pressure was recorded. Left ventriculography was performed utilized a total of 28 cc of Omnipaque dye at a rate of 14 cc per second. Following this, the catheter was pulled back across the aortic valve to recheck gradient. The decision was made to intervene into the distal right coronary artery. The existing 5-Estonian sheath was exchanged for the 6.5-Estonian sheath. Guiding views were obtained utilizing the 6-Estonian ART 4 curved guide catheter. The patient received an Angiomax bolus and Angiomax drip was started. The 0.014 All Star wire was advanced on the right coronary artery and was unsuccessful in crossing the critically stenosed 99% lesion prior to the PDA. This was kept in place and a 190 length Whisper wire was utilized and was able to cross the lesion and balloon angioplasty was performed with the 2.0 x 12 mm long Emerge balloon. Following this, the 2.75 x 12 mm long Synergy drug-eluting stent was deployed with post deployment balloon inflations, utilizing the NC Emerge 2.75 x 12 mm to high pressures. Following this, the artery was assessed for result. The catheter and sheath were then removed and hemostasis was obtained with a Mynx 6/7-Estonian closure device. The total contrast used was a 150 cc of Omnipaque dye. The radiation exposure included 13.1 minutes of fluoro time. The air kerma radiation was 2484 milligray. The DAP radiation was 24408 microgray per meter squared. RESULTS: HEMODYNAMIC DATA: Left heart catheterization revealed central aortic pressure recorded at 151/ 82 with a mean of 114. Left ventricular pressure 154 over left ventricular end- diastolic pressure of 16. LEFT VENTRICULOGRAPHY: Performed in the NIETO projection revealed moderate hypokinesis of the proximal to mid inferior wall with preservation of the rest of the ventricle. Overall EF 45% to 50%. No significant mitral regurgitation. CORONARY ARTERIOGRAPHY: A. Left coronary artery: 1. Left main widely patent. 2. Left anterior descending artery. The left anterior descending artery had a mild stepdown in caliber just after the first septal fruit room hand. The degree of narrowing of approximately 35%. The artery traverse to the apical region supplying a high somewhat posteriorly directed small diagonal branch with no significant disease. There was a mid diagonal branch that similarly had no significant disease and somewhat smaller in caliber followed by small caliber diagonal branches. 3. Circumflex artery - a nondominant vessel supplying several obtuse marginal branches ending at a low lying bifurcating obtuse marginal branch. There was mild luminal irregularity seen in the mid portion of the circumflex with a degree of luminal narrowing noted to be as much as 35%. This appeared to be within the prior stent in the circumflex. No significant in-stent restenosis was seen. B. Right coronary artery - a dominant vessel supplying multiple acute marginal branches, a PDA and several somewhat small caliber posterior left ventricular branches. There was mild luminal irregularity noted in the proximal area of the right coronary artery with as much as a 35% narrowing seen. As the artery turned on to the inferior surface of the heart before the posterior descending artery, there was a critical 99% blockage seen. There was no significant lesion past that point. INTERVENTION INTO DISTAL RIGHT CORONARY ARTERY: Successful reduction of critical 99% stenosis in distal right coronary artery with balloon angioplasty and stenting utilizing a 2.75 x 20 mm long Synergy drug-eluting stent dilated to high pressures to obtain approximately 2.9 mm with DEEPA-3 flow, no dissection seen, and 0% residual stenosis. OVERALL ASSESSMENT: Significant single-vessel disease involving the distal right coronary artery with a critical eccentric 99% lesion noted. Successful intervention with balloon angioplasty and stenting as described above. Dual- antiplatelet therapy for probably a year's time would be most appropriate in addition to high dose statin therapy and continued LLOYD inhibition and beta-ang therapy. The patient will be ultimately following up with his primary provider network mgr, Dr. Ruiz in [place], [place]. [id number]/[facility] #: [id number] MARISA
[2018-07-03] MEDS: Docusate CAP* 100 MG PO SCH (19:59)
--- NOTE | 2018-07-03 20:25 | CONS ---
CONSULTATION REPORT: DATE OF CONSULT: 07/03/18 REFERRING PHYSICIAN: Dr. Mathew. REASON FOR CONSULT: Thrombocytopenia. HISTORY OF PRESENT ILLNESS: A 62-year-old male with a history of obesity and diabetes as well as prior coronary artery disease with a drug-eluting stent placed 8 years ago. He had a history of stroke at age 41. He developed acute chest pain and came to the emergency room on 07/01/18. Pain was radiating to left arm. He actually lives in [place], was traveling through [place] and came to [facility]. On presentation, he was given 4 baby aspirin by EMS and nitroglycerin and then presented to the emergency room. He had questionable ST elevation. He subsequently bumped his troponin to over 3 and went to the catheterization lab today. I talked to Dr. Mathew about the case earlier. He had a drug-eluting stent placed for 99% occlusion of the right coronary artery and he was done without heparin. He came in on 07/01/18, and on admission, his platelet count was 134, repeat was 113 on 07/02/18, then 111 early this morning and 125 at 2 p.m. today. Hemoglobin is 13.7, MCV is 90, hematocrit 40%, white blood cell count 9.8 with a normal differential. Chemistries are essentially unremarkable with a hemoglobin A1c of 6.4. He has mild elevation in AST and ALT along with his elevated troponin. He has a B12 of over 1450. He has no history of bruising or bleeding and was never told in the past he had any difficulty with his platelets.No history of bruising or bleeding, no nose bleeds. No difficulty with prior procedures. No bleeding problems in the family. PAST MEDICAL HISTORY: 1. CVA at 41 years old. 2. Hypertension. 3. Diabetes. 4. Hyperlipidemia. 5. History of coronary artery disease with a stent 7 years ago on the left side. 6. Sleep apnea. 7. Depression. MEDICATIONS AT HOME: 1. Amitriptyline 50 mg at bedtime. 2. Aspirin 81 a day. 3. Celexa 30 mg daily. 4. Plavix 75 a day. 5. Metoprolol 50 b.i.d. 6. Acarbose 25 mg 1 tab t.i.d. with meals. 7. Lisinopril 40 a day. 8. Trazodone 50 at bedtime. 9. Hydrochlorothiazide 25 mg daily. 10. Metformin 1500 mg p.o. q.a.m. and 1000 mg p.o. q.p.m. 11. Glyburide 2 tablets b.i.d. 12. B12 2500 a day. 13. [place]-3. ALLERGIES: PENICILLIN. FAMILY HISTORY: Coronary artery disease and diabetes. SOCIAL HISTORY: Remote smoking history. He does not drink alcohol. Disabled, with 2 children. REVIEW OF SYSTEMS: No chest pain at this time. He is a little bit sedated after his catheterization. Denies shortness of breath. Denies any history of bruising or bleeding. No lymphadenopathy. No fever, chills, or night sweats. PHYSICAL EXAM: BP 137/80, heart rate 73, respiratory rate 16, temperature 97. HEENT: Mucosa moist, no lesions.l. No supraclavicular or axillary lymphadenopathy. I could not check the inguinal nodes. Lungs are clear to auscultation. Heart: Regular rhythm. S1, S2. No murmurs or gallops. Abdomen : Obese, nontender, nondistended. Good bowel sounds. Extremities: Good pulses x4. DIAGNOSTIC STUDIES/LAB DATA: Labs as noted above. ASSESSMENT AND PLAN: A 62-year-old male who presents with mild thrombocytopenia. I talked to Dr. Mathew earlier today. Differential diagnosis includes mild idiopathic thrombocytopenic purpura, drop could be dilutional. I was worried initially about heparin allergy as the platelets dropped after admission and he had previously had heparin exposure, but this is less likely because his presenting platelet count was suppressed. This could be primary marrow defect, infiltrative disease. All these entities are manageable except for marrow failure, which cannot be assessed emergently, my advice was a drug- eluting stent but avoiding heparin. That was done today. 1. Review manual blood film later today. I will continue treatment without heparin just in case. 2. Send PF4 antibodies. 3. 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 He will need followup platelet count after discharge and we will check daily while he is in the hospital. He should see a road grader after discharge near home. 4. If counts stable ok to d/c tomorrow. [id number]/[facility] #: [id number] [facility]
[2018-07-03] MEDS: Atorvastatin* 80 MG TAB PO SCH (21:41)
[2018-07-03] MEDS: traZODone TAB* 50 MG TAB PO SCH (21:41)
[2018-07-03] MEDS: Amitriptyline TAB* 50 MG PO SCH (21:56)
[2018-07-04 06:33] LABS: ABS Basophils 0.1 10^3/ul (0-0.2); ABS Eosinophils 0.1 10^3/ul (0-0.6); ABS Lymphocytes 1.5 10^3/ul (1.0-4.8); ABS Monocytes 0.9 10^3/ul (0-0.8); ABS Neutrophils 5.7 10^3/ul (1.5-7.7); ABS Nucleated RBC 0 10^3/ul; Eosinophil % 1.6 %; Hematocrit 39 % (42-52); Hemoglobin 13.3 g/dl (14.0-18.0); Lymphocyte % 18.1 %; Mean Corpuscular HGB Conc 34 g/dl (31-36); Mean Corpuscular Hemoglobin 31 pg (27-31); Mean Corpuscular Volume 91 fL (80-94); Mean Platelet Volume 8.3 fL (7.4-10.4); Nucleated Red Blood Cells % 0; Platelet Count 117 10^3/ul (150-450); Red Blood Count 4.35 10^6/ul (4.00-5.40); Red Cell Distribution Width 15 % (10.5-15); White Blood Count 8.2 10^3/ul (3.5-10.8)
[2018-07-04 06:51] LABS: BUN/Creatinine Ratio 15.8 (8-20); Calcium 9.2 mg/dL (8.6-10.3); EGFR African American 97.2 (>60); EGFR Non-African American 80.3 (>60); HDL Cholesterol 27.7 mg/dL
--- NOTE | 2018-07-04 07:45 | PN ---
Subjective Date of Service: 07/04/18 Interval History: No cough, chest pain, SOB, palpitations. No new c/o. Objective Active Medications: Acetaminophen (Tylenol Tab*) 650 mg PO Q6H PRN PRN Reason: FEVER/PAIN Amitriptyline HCl (Elavil Tab*) 50 mg PO BEDTIME [facility] Last Admin: 07/03/18 21:56 Dose: 50 mg Aspirin (Aspirin 81 Mg Chew Tab*) 81 mg PO DAILY [facility] Last Admin: 07/03/18 08:45 Dose: 81 mg Atorvastatin Calcium (Lipitor*) 80 mg PO BEDTIME [facility] Last Admin: 07/03/18 21:41 Dose: 80 mg Citalopram Hydrobromide (Celexa Tab*) 30 mg PO DAILY [facility] Last Admin: 07/03/18 08:45 Dose: 30 mg Clopidogrel Bisulfate (Plavix Tab*) 75 mg PO DAILY [facility] Last Admin: 07/03/18 08:45 Dose: 75 mg Dextrose (D50w Syringe 50 Ml*) 12.5 gm IV PUSH .FOR FS < 60 - SS PRN PRN Reason: FS < 60 Docusate Sodium (Colace Cap*) 200 mg PO DAILY [facility] Last Admin: 07/03/18 19:59 Dose: Not Given Heparin Sodium (Porcine) (Heparin Vial(*)) 0 units IV .BOLUS PRN PRN Reason: HEPARIN DRIP PROTOCOL Last Admin: 07/02/18 00:06 Dose: 4,000 units Hydrochlorothiazide (Hydrodiuril Tab*) 25 mg PO DAILY [facility] Last Admin: 07/03/18 08:06 Dose: Not Given Insulin Human Lispro (Humalog*) 0 units SUBCUT [facility]; Protocol Last Admin: 07/03/18 21:46 Dose: Not Given Lisinopril (Prinivil Tab*) 40 mg PO DAILY [facility] Last Admin: 07/03/18 08:45 Dose: 40 mg Metoprolol Succinate (Toprol Xl Tab*) 100 mg PO BID [facility] Last Admin: 07/03/18 21:41 Dose: 100 mg Nitroglycerin (Nitroglycerin Tab 0.4 Mg*) 0.4 mg SL Q5M PRN PRN Reason: ANGINA Trazodone HCl (Desyrel Tab*) 50 mg PO BEDTIME [facility] Last Admin: 07/03/18 21:41 Dose: 50 mg Vital Signs - 8 hr 02/11/19 02/12/19 02/12/19 23:59 00:00 00:30 Temperature 98.4 F Pulse Rate 83 75 Respiratory 16 19 Rate Blood Pressure 121/93 137/72 (mmHg) O2 Sat by Pulse 93 91 Oximetry 07/04/18 07/04/18 07/04/18 01:00 02:00 03:00 Temperature Pulse Rate 78 76 71 Respiratory 22 16 15 Rate Blood Pressure 139/82 145/85 139/76 (mmHg) O2 Sat by Pulse 94 93 95 Oximetry 07/04/18 07/04/18 07/04/18 03:38 04:00 04:01 Temperature 97.9 F Pulse Rate 67 Respiratory 18 20 Rate Blood Pressure 123/81 (mmHg) O2 Sat by Pulse 95 Oximetry 07/04/18 07/04/18 05:00 06:00 Temperature Pulse Rate 65 64 Respiratory 18 16 Rate Blood Pressure 144/77 130/76 (mmHg) O2 Sat by Pulse 94 94 Oximetry Oxygen Devices in Use Now: CPAP Appearance: Alert, home CPAP in place. In good spirits. Looks comfortable. Eyes: No Scleral Icterus Neck: NL Appearance and Movements; NL JVP, No Thyroid Enlargement, Masses Respiratory: Symmetrical Chest Expansion and Respiratory Effort, Clear to Auscultation, Clear to Percussion Cardiovascular: NL Sounds; No Murmurs; No JVD, RRR, No Edema, - Extremities: No Edema, No Clubbing, Cyanosis, - Skin: No Rash or Ulcers, No Nodules or Sclerosis, - Neurological: Alert and Oriented x 3, NL Sensation Result Diagrams: 07/04/18 06:15 07/04/18 06:15 Assess/Plan/Problems-Billing Assessment: - Patient Problems (1) NSTEMI (non-ST elevated myocardial infarction) Current Visit: Yes Status: Acute Code(s): I21.4 - NON-ST ELEVATION (NSTEMI) MYOCARDIAL INFARCTION SNOMED Code(s): 89569818 Comment: Peak troponin 3.91. -Continue DAPT, statins, Metoprolol, and Lisinopril -LHC reveals 99% or RCA just prior to Postereior descending art.; KAYODE placed . Encouraged ambulation. Plan d/c 07/05 if stable. Discussed with Dr. Mathew. (2) HTN (hypertension) Current Visit: Yes Status: Acute Code(s): I10 - ESSENTIAL (PRIMARY) HYPERTENSION SNOMED Code(s): 36774025 Comment: Continue metoprolol 100 mg BID -Continue other anti-HTNs (3) Diabetes 1.5, managed as type 2 Current Visit: Yes Status: Acute Code(s): E13.9 - OTHER SPECIFIED DIABETES MELLITUS WITHOUT COMPLICATIONS SNOMED Code(s): 556895174 Comment: Used 3 U Lispro in first 48 hrs here. -Continue ISS and FS checks bid. -HBa1c (07/01/18) = 6.4 Continue consistent carb diet to current heart healthy diet w/o caffeine Status and Disposition: -For D/C in AM per Dr. Madrid if no O/N issues -Will defer
[2018-07-04] MEDS: Lisinopril TAB* 10 MG PO SCH (08:46)
[2018-07-04] MEDS: Aspirin 81 mg CHEW TAB* 81 MG TAB.CHEW PO SCH (08:46)
[2018-07-04] MEDS: Clopidogrel TAB* 75 MG PO SCH (08:46)
[2018-07-04] MEDS: Metoprolol Succinate XL TAB* 50 MG PO SCH ×2 (08:47→21:57)
[2018-07-04] MEDS: Citalopram TAB* 20 MG PO SCH (08:47)
[2018-07-04] MEDS: Docusate CAP* 100 MG PO SCH (08:47)
[2018-07-04] MEDS: Hydrochlorothiazide TAB* 25 MG PO SCH (08:48)
[2018-07-04] MEDS: Insulin LISPRO* 1 UNITS UNIT SUBCUT SCH ×4 (09:14→22:01)
[2018-07-04] MEDS: Atorvastatin* 80 MG TAB PO SCH (21:57)
[2018-07-04] MEDS: Amitriptyline TAB* 50 MG PO SCH (21:58)
[2018-07-04] MEDS: traZODone TAB* 50 MG TAB PO SCH (21:58)
[2018-07-05] MEDS: Insulin LISPRO* 1 UNITS UNIT SUBCUT SCH ×2 (07:48→11:26)
[2018-07-05] MEDS: Lisinopril TAB* 10 MG PO SCH (08:34)
[2018-07-05] MEDS: Docusate CAP* 100 MG PO SCH (08:35)
[2018-07-05] MEDS: Hydrochlorothiazide TAB* 25 MG PO SCH (08:35)
[2018-07-05] MEDS: Clopidogrel TAB* 75 MG PO SCH (08:35)
[2018-07-05] MEDS: Aspirin 81 mg CHEW TAB* 81 MG TAB.CHEW PO SCH (08:35)
[2018-07-05] MEDS: Metoprolol Succinate XL TAB* 50 MG PO SCH (08:35)
[2018-07-05] MEDS: Citalopram TAB* 20 MG PO SCH (08:35)
--- NOTE | 2018-07-05 12:20 | PN ---
Progress Note - Progress Note Date of Service: 07/05/18 Note: Time spent on discharge including exam of pt, discussion with pt, nurse, CM, Dr. Mathew, review of EMR and preparation of discharge documents is 35 minutes.
[2018-07-05 12:36] VITALS: BP 137/80
--- NOTE | 2018-07-05 15:42 | DS ---
DATE OF ADMISSION: 07/02/2018. DATE OF DISCHARGE: 07/05/2018. HISTORY: This 62-year-old man presented with left jaw and arm pain and chest tightness. The history is detailed in the admission note. He initially had no EKG changes and the troponin was 0.05; however, his troponin melony. The second troponin was 1.47, the peak was 3.91. The patient underwent cardiac catheterization on 07/03/2018. He had a critical 99 percent lesion in the distal right coronary artery and had stenting done. He will stay on his aspirin and Clopidogrel. He will follow-up with his local configuration management administrator. His cholesterol medication was changed from Simvastatin to Atorvastatin 80 mg daily. I also gave him a new supple of nitroglycerin sublingual. He had his Metformin held while in the hospital and will restart it on July 06. FINAL DIAGNOSES: 1. [id number] NC. 2. Hypertension. 3. Diabetes. DISCHARGE MEDICATIONS: 1. Atorvastatin 80 mg daily. 2. Nitroglycerin 0.4 mg sublingual every 5 minutes prn. 3. Lisinopril one tablet daily. 4. Clopidogrel 75 mg daily. 5. Citalopram xuj-mar-a-half tablets daily. 6. Trazodone 50 mg at bedtime. 7. Hydrochlorothiazide one tablet daily. 8. Metformin 1,000 mg in the evening and 1,500 mg in the morning. 9. Aspirin 81 mg daily. 10. Glyburide two tablets b.i.d. 11. Vitamin B12 2500 mcg daily. 12. [place] Oil as prescribed. 13. Multivitamin as prescribed. 14. Amitriptyline 50 mg at bedtime. 15. Acarbose one tablet t.i.d. with meals. 16. Metoprolol Succinate 50 mg b.i.d. CONDITION ON DISCHARGE: Stable. DISPOSITION ON DISCHARGE: Discharged to home. [id number]/[facility] #: [id number] MARISA
[2018-07-05 17:51] LABS: Albumin 3.2 g/dL (3.4-4.7); Albumin/Globulin Ratio 1.01; Gamma Globulin 0.8 g/dL (0.6-1.6); Total Protein(PEP) 6.3 g/dL (6.3 - 7.9)
== END 2018-07-05 13:30 | disposition home or self-care (01) | DRG 174 ==
LOC: ED 18:26 → MEDTELE 21:14 → OBSVTOIN 07-02 16:00 → ICU 07-03 13:23 → MEDTELE 07-04 14:57
PROVIDERS: ADMIT Internal Medicine; ATTEND Internal Medicine
PROC: B2111ZZ Fluoroscopy of Multiple Coronary Arteries using Low Osmolar Contrast (ICD-10-PCS; 2018-07-03)
PROC: 4A023N7 Measurement of Cardiac Sampling and Pressure, Left Heart, Percutaneous Approach (ICD-10-PCS; 2018-07-03)
PROC: B2151ZZ Fluoroscopy of Left Heart using Low Osmolar Contrast (ICD-10-PCS; 2018-07-03)
PROC: 027034Z Dilation of Coronary Artery, One Artery with Drug-eluting Intraluminal Device, Percutaneous Approach (ICD-10-PCS; principal; 2018-07-03 11:30)
DX: I21.4 Non-ST elevation (NSTEMI) myocardial infarction (principal); I10 Essential (primary) hypertension; E11.9 Type 2 diabetes mellitus without complications; E66.9 Obesity, unspecified; E78.5 Hyperlipidemia, unspecified; F32.9 Major depressive disorder, single episode, unspecified; I65.22 Occlusion and stenosis of left carotid artery; G89.29 Other chronic pain; M54.2 Cervicalgia; F41.9 Anxiety disorder, unspecified; D69.6 Thrombocytopenia, unspecified; G47.33 Obstructive sleep apnea (adult) (pediatric); M48.00 Spinal stenosis, site unspecified; I25.10 Atherosclerotic heart disease of native coronary artery without angina pectoris; Z88.0 Allergy status to penicillin; Z68.37 Body mass index [BMI] 37.0-37.9, adult; Z87.891 Personal history of nicotine dependence; Z95.5 Presence of coronary angioplasty implant and graft; Z82.49 Family history of ischemic heart disease and other diseases of the circulatory system; Z83.3 Family history of diabetes mellitus; Z81.8 Family history of other mental and behavioral disorders; Z80.0 Family history of malignant neoplasm of digestive organs; I69.320 Aphasia following cerebral infarction; Z86.010 Personal history of colon polyps; Z79.02 Long term (current) use of antithrombotics/antiplatelets; Z79.84 Long term (current) use of oral hypoglycemic drugs; Z79.82 Long term (current) use of aspirin
CPT/HCPCS: 36415; 71045; 76937; 80048; 80053; 80061; 82550; 82553; 82607; 83036; 83605; 83735; 83880; 84100; 84155; 84165; 84443; 84484; 85025; 85379; 85610; 85730; 93005; 93458; 94660; 99156; 99157; 99223; 99284; A9270-GY; C1725; C1760; C1769; C1876; C1887; C9600-RC; G0378; J0583; J1644; J2250; J3010